=== PATIENT | female | born 1950 | race Caucasian/White ===

== ENCOUNTER 2017-10-16 06:10 | Day surgery (SDC) | payer OTHER ==
[2017-10-15 17:50] VITALS: BMI 33.1
[2017-10-16] MEDS ORDERED: MIDAZOLAM HCL 2 MG/2 ML SINGLE DOSE VIAL ONE (07:41)
--- NOTE | 2017-10-16 07:42 | HP ---
Past Medical History - Primary Care Physician PCP:: Obdulio Vazquez - Admission Chief Complaint: postmenopausal vaginal bleding , EM polyp, fibroid uterus History of Present Illness: 67 yo f with hx of PMB admitted for hysteroscopy, EM polypectomy , RBA discussed History Source: Patient Limitations to Obtaining History: No Limitations - Past Medical History Cardiovascular: Yes: Hyperlipdemia - Past Surgical History Hx Myomectomy: No Hx Transabdominal Cerclage: No - Smoking History Smoking history: Former smoker Have you smoked in the past 12 months: No If you are a former smoker, when did you quit?: 20YRS - Alcohol/Substance Use Hx Alcohol Use: Yes (OCCAS) - Social History History of Recent Travel: No Home Medications - Allergies Allergies/Adverse Reactions: Allergies Allergy/AdvReac Type Severity Reaction Status Date / Time acetaminophen [From Vicodin] Allergy Nausea Verified 10/16/17 06:33 hydrocodone [From Vicodin] Allergy Nausea Verified 10/16/17 06:33 - Home Medications Home Medications: Ambulatory Orders Aspirin Coated [Ecotrin -] 81 mg PO DAILY 10/15/17 Atorvastatin Ca [Lipitor] 40 mg PO HS 10/15/17 Calcium/D3/Mag Ox/Cosmetic Chemist/Franco/Zn [Caltrate+D3 Plus Mineral Minis] 1 each PO DAILY 10/15/17 Cholecalciferol (Vitamin D3) [Vitamin D] 2,000 unit PO DAILY 10/15/17 Review of Systems - Review of Systems Constitutional: reports: No Symptoms Eyes: reports: No Symptoms HENT: reports: No Symptoms Neck: reports: No Symptoms Cardiovascular: reports: No Symptoms Respiratory: reports: No Symptoms Gastrointestinal: reports: No Symptoms Genitourinary: reports: No Symptoms Breasts: reports: No Symptoms Reported Musculoskeletal: reports: No Symptoms Integumentary: reports: No Symptoms Neurological: reports: No Symptoms Endocrine: reports: No Symptoms Hematology/Lymphatic: reports: No Symptoms Psychiatric: reports: No Symptoms 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: Vital Signs Temperature 98.0 F 10/16/17 06:30 Pulse Rate 78 10/16/17 06:30 Respiratory Rate 20 10/16/17 06:30 Blood Pressure 112/74 10/16/17 06:30 O2 Sat by Pulse Oximetry (%) 97 10/16/17 06:31 Constitutional: Yes: Well Nourished, No Distress, Calm Eyes: Yes: WNL, Conjunctiva Clear, EOM Intact HENT: Yes: WNL, Atraumatic, Normocephalic Neck: Yes: WNL, Supple, Trachea Midline Cardiovascular: Yes: WNL, Regular Rate and Rhythm Respiratory: Yes: WNL, Regular, CTA Bilaterally Gastrointestinal: Yes: WNL ...Rectal Exam: Yes: WNL Renal/: Yes: WNL Pelvis: Yes: WNL External Genitalia: Yes: Normal Vaginal Exam: Yes: Normal Cervix: Yes: Normal Uterus: Yes: Normal Adnexa: Not Palpable: Left, Right Breast(s): Yes: WNL Musculoskeletal: Yes: WNL Extremities: Yes: WNL Integumentary: Yes: WNL Neurological: Yes: WNL, Alert, Oriented ...Motor Strength: WNL Psychiatric: Yes: WNL, Alert, Oriented Problem List - Problem (1) Postmenopausal vaginal bleeding Code(s): N95.0 - POSTMENOPAUSAL BLEEDING (2) Endometrial polyp Code(s): N84.0 - POLYP OF CORPUS UTERI Assessment/Plan hysteroscopy , D&C, polypectomy
[2017-10-16] MEDS ORDERED: SUCCINYLCHOLINE CHLORIDE 200 MG/10 ML VIAL ONE (07:43)
[2017-10-16] MEDS ORDERED: PROPOFOL 20 ML ONE (07:43)
[2017-10-16] MEDS ORDERED: oxyCODONE HCL 5 MG TABLET PO PRN (07:43)
[2017-10-16] MEDS ORDERED: IBUPROFEN 800 MG/8 ML IJ IVPB PRN (07:43)
[2017-10-16] MEDS ORDERED: ONDANSETRON 4 MG/2 ML VIAL IVPUSH PRN ×2 (07:43→08:29)
[2017-10-16] MEDS ORDERED: IBUPROFEN 600 MG TABLET (FP) PO PRN (07:43)
[2017-10-16] MEDS ORDERED: ELECTROLYTE-148 SOLN 1,000 ML IV SCH (07:45)
[2017-10-16] MEDS ORDERED: KETOROLAC TROMETHAMINE 30 MG/1 ML VIAL ONE (08:08)
[2017-10-16] MEDS ORDERED: LIDOCAINE HCL/PF 2% SDV 5ML VIAL ONE (08:08)
[2017-10-16] MEDS ORDERED: DEXAMETHASONE SOD PHOSPHATE 4 MG/1 ML VIAL ONE (08:08)
[2017-10-16] MEDS ORDERED: PROMETHAZINE HCL 25 MG/1 ML VIAL IVPB PRN (08:29)
[2017-10-16] MEDS ORDERED: LACTATED RINGERS SOLUTION 1,000 ML IV SCH (08:30)
[2017-10-16 10:02] VITALS: TEMP 97.8
[2017-10-16 11:57] VITALS: BP 106/68
[2017-10-16 12:18] VITALS: PULSE 70
--- NOTE | 2017-10-19 09:30 | PATH ---
Surgical Pathology Report Patient Name: BETH VELAZQUEZ [facility]. Rec. #: [id number] /Age/Gender: 1950 (Age: 67) / F Account: [id number] Location: [facility] SURGICAL Taken: 10/16/2017 Received: 10/16/2017 Reported: 10/19/2017 Physicians: Obdulio Vazquez M.D. Specimen(s) Received ENDOMETRIAL CURETTINGS Clinical History Postmenopausal bleeding Final Diagnosis ENDOMETRIAL CURETTINGS, DILATION AND CURETTAGE: SCANT FRAGMENTS OF ENDOMETRIAL POLYP. Electronically Signed Adrianne Oro M.D. Gross Description Received in formalin labeled "endometrial curettings," is a 0.8 x 0.6 x 0.2 cm aggregate of hussein soft tissue fragments. The formalin is filtered and the specimen is entirely submitted in one cassette. /10/16/201710/16/2017
--- NOTE | 2017-10-21 08:01 | OP ---
DATE OF OPERATION: 10/16/2017 PREOPERATIVE DIAGNOSES: Postmenopausal bleeding, endometrial polyp. POSTOPERATIVE DIAGNOSES: Postmenopausal bleeding, endometrial polyp. PROCEDURE: Hysteroscopy, dilatation and curettage, polypectomy. SURGEON: Obdulio Vazquez MD ANESTHESIA: General. ESTIMATED BLOOD LOSS: 20 mL. OPERATION: Patient was taken to the operating room. Under adequate general anesthesia in dorsal lithotomy position, examination under anesthesia revealed external genitalia to be normal. Vagina was atrophic. Cervix was clean, no lesion. Uterus normal size. Adnexae: No masses were palpable. Then with a weighted speculum in the vagina, anterior lip of the cervix was grasped with single-tooth tenaculum. Uterine cavity was sounded to 6 cm. Then cervix was slightly dilated with Hegar dilator. Hysteroscope was introduced. Visualization of the endocervical canal appeared to be normal. Endometrium appeared to be atrophic with a small polyp at the fundal area of the uterus. The polyp appeared to be like 1 to 2 cm. Then both cornual regions of the uterus were identified. No other abnormality was found. Hysteroscope was withdrawn and then endometrial polyp was removed and the endometrium was curetted. Patient tolerated procedure well. Left the OR in good condition. Lisa [id number]
== END 2017-10-16 12:00 | disposition home or self-care (01) ==
LOC: JASU-SURG 06:10
PROVIDERS: ATTEND Obstetrics & Gynecology
PROC: 0UJD8ZZ Inspection of Uterus and Cervix, Via Natural or Artificial Opening Endoscopic (ICD-10-PCS; 2017-10-16)
PROC: 0UB97ZX Excision of Uterus, Via Natural or Artificial Opening, Diagnostic (ICD-10-PCS; principal; 2017-10-16 07:30)
PROC: 0UDB7ZX Extraction of Endometrium, Via Natural or Artificial Opening, Diagnostic (ICD-10-PCS; 2017-10-16 07:30)
DX: N95.0 Postmenopausal bleeding (principal); N84.0 Polyp of corpus uteri
CPT/HCPCS: 88305-TC; 94760